=== PATIENT | male | born 1935 | race Caucasian/White ===

== ENCOUNTER → 2017-06-11 | Outpatient (CLI) | payer MEDICARE ==
[~2017-06-11] MED LIST: ALB17R INH; ALLO-2 PO; ALLO100T70 PO; ARMTHY90PT PO; ASPI-1441 PO; ASPI-1471 PO; ATOR40TA69 PO; AZIT-17 PO; BARIUM SULFATE 148 GM POWDER ONE; CEP500 PO; CHOL10005 PO; CLOB50FO2 TP; CLOP75TA PO; CLOP75TA43 PO; DOCU-416 PO; DUTA0.5C14 PO; ECON15CR10 TP; ENA5 PO; ENTA200T3 PO; EZET1TAB63 PO; FLU180SY9 IM; FLU45SYR17 IM; FLU45SYR25 IM ONLY; FLUO15CR TP; FURO-45 PO; FURO20TA19 PO; HYDR10TA3 PO; INDO50CA92 PO; LANI SC; LEVO-85 PO; LEVO25TA57 PO; LEVO75TA73 PO; LOSA100T67 PO; LOSA25TA50 PO; METF-1 PO; METH4TAB66 PO; METO25TA23 PO; NYST15CR32 TP; OMEP1CAP15 PO; OMEP1CAP27 PO; OXYC-373 PO; OXYGENHOME INH; PNEU0.5D3 IM; PRAV40TA78 PO; SPIR25TA78 PO; TAMS0.4C70 PO; TEST200V IM; THYROID PO; TIMO1DRO9 OP; Thyroid PO; [UNRECOGNIZED DRUG - OTHER] PO
--- NOTE | 2017-06-11 17:17 | RADIOLOGY IMAGING REPORT ---
[facility] PATIENT NAME: Dorian Bradshaw : 1935 MR: [id number] V: [id number] EXAM DATE: [id number] ORDERING PHYSICIAN: KARLIE SOLARES TECHNOLOGIST: Location: [facility] Patient: Dorian Bradshaw : 1935 Visit/Account:[id number] Date of Sevice: 06/11/2017 Exam type: ESOPH VIDEO SWALLOWING History: Pharyngoesophageal dysphasia Comparison: None. Findings: The modified barium swallow was performed by the speech pathologist. The patient received various ba rium impregnated liquids and solids and a barium tablet. Please see the speech pathologist report fo r complete details. The fluoroscopy dose area product was 341.14 micro-Oliveros per meter squared IMPRESSION: 1. As above Report Dictated By: Rosie Saldana MD at 06/11/2017 5:12 PM Report E-Signed By: Rosie Saldana MD at 06/11/2017 5:13 PM WSN:[email or web address]
--- NOTE | 2017-06-12 09:29 | SLP MODIFIED BARIUM SWALLOW ---
Speech Language Pathology Modified Barium Swallow Evaluation Report Date of Evaluation: 06-11-17 Patient Name: Dorian Bradshaw Patient : 1935 Physician: Latosha Vargas MD Clinician: Shilpa Spann M.S., [facility] BACKGROUND The patient is an 81 yr old male referred for an MBS to assess swallow structure and function as indicated by s/s of pharyngeal dysphagia including globus sensation. He reports sensation resolves with liquid wash and that taking small bites decreases frequency of symptoms. These symptoms have been present for approximately 2 years. He has a medical history positive for GERD as well as hiatal hernia. 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 Oxygen Supplementation: Y 2L, nasal cannula Level of Consciousness: Non altered Cognitive/Linguistic: intact Orientation: x4 Language: -expressive: nonaphasic -receptive: nonaphasic Speech: -non-apraxic -non-dysarthric Voice -Dysphonia: none -Nasal emission: No -Hypernasality: No -Wet Vocal Quality: No Non-verbal Oral Structure and Function: within functional limits for speech and swallow Pain with Swallow: Denies. Pt. reports feeling intermittent globus sensation inferior to larynx MODIFIED BARIUM SWALLOW In conjunction with radiology, lateral view with trials of the following consistencies: thin barium liquid (noncarbonated), barium marked pureed, mechanical soft, and regular food consistencies, and a 1cm barium pill. ORAL STAGE Thin Liquids: no evidence of dysphagia . WNL Pureed Foods: no evidence of dysphagia . WNL Mechanical Soft Foods: no evidence of dysphagia . WNL Regular Foods: no evidence of dysphagia . WNL. PHARYNGEAL STAGE Thin Liquid: no evidence of dysphagia WNL. Pureed Food: no evidence of dysphagia WNL. Mechanical Soft Foods: no evidence of dysphagia WNL. Regular Food Consistency: no evidence of dysphagia WNL. Penetration/Aspiration Scale*: Thin liquid: Score of 1= Contrast does not enter airway Puree: Score of 1= Contrast does not enter airway Soft and regular solids: Score of 1= Contrast does not enter airway *(Doris et al. 1996) ESOPHAGEAL STAGE Peristaltic movement appears to be WNL Cervical Esophagus: Materials witnessed clearing from cervical esophagus WNL. Thoracic Esophagus: Liquid bolus paused in upper thoracic region of the esophagus. Pt reported a globus sensation with this event. The material was cleared easily with an additional liquid swallow. CARO: Non witnessed Laryngopharyngeal Reflux (LPR) None witnessed BARIUM PILL: 1cm barium pill taken with thin liquids. No oral, pharyngeal, or esophageal dysphagia witnessed. SUMMARY 1. Aspiration Risk: Low. No laryngeal penetration or aspiration witnessed. No oral or pharyngeal stage dysphagia witnessed. Possible mild esophageal stage dysphagia as a liquid bolus paused in upper thoracic region of the esophagus. Pt reported a globus sensation with this event. The material was cleared easily with an additional liquid swallow. Outside of the MBS, the patient reports intermittent globus sensation at the laryngeal level as well as approximately midway between xiphoid process and suprasternal notch. Pt reports success clearing all globus sensation with liquid wash as well as decreasing frequency of the sensation with reduced bolus size. 2.Dysphagia Severity Rating Scale (Gramigna, 2006; Gal et. al., 1990): 1; Minimal dysphagiavideo swallow shows slight deviance from a normal swallow. Patient may report a change in sensation during swallow. No change in diet is required. No modification in consistency of diet is indicated though continuing with small bolus size is recommended. RECOMMENDATIONS 1. Speech Therapy: Not recommended at this time. 2. Diet: No change in diet is recommended at this time. 3. Compensatory Tech: Continue with reduced bolus size and liquid washes. 4. Patient was provided with verbal education regarding swallow anatomy , safe swallow recommendations. Thank you for this referral. Please call [phone] to contact the [facility]. Shilpa Spann M.S., [facility] Physician Signature Date [facility]
== END ==
LOC: RAD 00:37
PROVIDERS: ATTEND Otolaryngology
DX: R13.14 Dysphagia, pharyngoesophageal phase (principal)
CPT/HCPCS: 74230

== ENCOUNTER → 2017-07-10 | Outpatient (CLI) | payer MEDICARE ==
[~2017-07-10] MED LIST changes: -BARIUM SULFATE 148 GM POWDER ONE; +OMEP40CA48 PO
== END ==
LOC: LAB 11:57
PROVIDERS: ATTEND Internal Medicine Cardiovascular Disease
DX: I25.10 Atherosclerotic heart disease of native coronary artery without angina pectoris (principal)
CPT/HCPCS: 36415; 82040; 82247; 82310; 82374; 82435; 82465; 82565; 82947; 83718; 84075; 84132; 84155; 84295; 84450; 84460; 84478; 84520

== ENCOUNTER → 2017-08-15 | Outpatient (CLI) | payer MEDICARE ==
[2017-08-15 13:54] LABS: PLATELET COUNT, AUTOMATED 310 K/uL (150-450)
== END ==
LOC: LAB 13:19
PROVIDERS: ATTEND Internal Medicine
DX: F41.8 Other specified anxiety disorders (principal); N18.9 Chronic kidney disease, unspecified; I25.10 Atherosclerotic heart disease of native coronary artery without angina pectoris; R09.02 Hypoxemia; G47.33 Obstructive sleep apnea (adult) (pediatric); E11.9 Type 2 diabetes mellitus without complications
CPT/HCPCS: 36415; 82040; 82247; 82310; 82374; 82435; 82465; 82565; 82947; 83036; 83718; 84075; 84132; 84155; 84295; 84439; 84443; 84450; 84460; 84478; 84520; 85025

== ENCOUNTER → 2017-09-25 | Outpatient (CLI) | payer MEDICARE | LOC: LAB 16:51 | PROVIDERS: ATTEND Internal Medicine Cardiovascular Disease | DX: I25.10 Atherosclerotic heart disease of native coronary artery without angina pectoris (principal) | CPT/HCPCS: 36415; 82040; 82247; 82310; 82374; 82435; 82465; 82565; 82947; 83718; 83880; 84075; 84132; 84155; 84295; 84450; 84460; 84478; 84520 ==

== ENCOUNTER → 2018-04-27 | Outpatient (CLI) | payer MEDICARE ==
[~2018-04-27] MED LIST changes: +CLIN300C99 PO; +CLOB15CR22 TP; +FLU180SY11 IM; +INDO-23 PO; -INDO50CA92 PO; +LEVO88TA45 PO; -LOSA100T67 PO; +LOSA100T69 PO; -LOSA25TA50 PO; +LOSA25TA52 PO; -SPIR25TA78 PO; +SPIR25TA80 PO
[2018-04-27 13:49] LABS: PLATELET COUNT, AUTOMATED 314 K/uL (150-450)
== END ==
LOC: LAB 12:39
PROVIDERS: ATTEND Internal Medicine
DX: F41.9 Anxiety disorder, unspecified (principal); N18.9 Chronic kidney disease, unspecified; I50.9 Heart failure, unspecified; I25.10 Atherosclerotic heart disease of native coronary artery without angina pectoris; E78.00 Pure hypercholesterolemia, unspecified; G47.33 Obstructive sleep apnea (adult) (pediatric); E11.9 Type 2 diabetes mellitus without complications; Z12.5 Encounter for screening for malignant neoplasm of prostate
CPT/HCPCS: 83036; 84443; 84550; 85025; G0103; 82040; 82247; 82310; 82374; 82435; 82465; 82565; 82947; 83718; 84075; 84132; 84153; 84155; 84295; 84450; 84460; 84478; 84520

== ENCOUNTER → 2018-05-04 | Outpatient (CLI) | payer MEDICARE ==
--- NOTE | 2018-05-04 17:28 | RADIOLOGY IMAGING REPORT ---
FACILITY: [facility] PATIENT NAME: Dorian Bradshaw : 1935 MR: [id number] V: [id number] EXAM DATE: ORDERING PHYSICIAN: BARAK LOAIZA TECHNOLOGIST: Location: [facility] Patient: Dorian Bradshaw : 1935 Visit/Account:[id number] Date of Sevice: 05/04/2018 EXAMINATION: VENOUS DOPP UPPER LEFT EXTREMITY COMPARISON: None. HISTORY: Swelling, bruising, pain L arm. FINDINGS: Standard left upper extremity Doppler ultrasound with color flow and spectral analysis is p erformed. The visualized internal jugular, subclavian, axillary, cephalic, and brachial and basilic veins are w idely patent and compress appropriately. The visualized forearm veins are patent. At the site of bruising along the left upper arm the soft tissue appears mildly heterogeneous but no discrete mass or fluid collection is identified. IMPRESSION: No left upper extremity deep venous thrombosis. Report Dictated By: Ted Wheeler MD at 05/04/2018 5:22 PM Report E-Signed By: Ted Wheeler MD at 05/04/2018 5:24 PM WSN:[id number]
== END ==
LOC: US 15:17
PROVIDERS: ATTEND Nurse Practitioner Primary Care
DX: R60.9 Edema, unspecified (principal)

== ENCOUNTER 2018-06-19 18:59 | Emergency (ER) | payer MEDICARE ==
--- NOTE | 2018-06-19 19:14 | ER Report ---
History and Physical Time Seen By MD: 19:14 HPI/ROS CHIEF COMPLAINT: Shortness of breath HISTORY OF PRESENT ILLNESS: 82-year-old male patient presents to emergency room with complaint shortness of breath. Patient states that he had gone to a movie with his ex-. He states that throughout the movie that he was unable to keep the chart on his portable concentrator. Patient states that towards the end of the movie he was weak and was able to walk up. He helps out the car. At that time he felt he was going to pass out and have them call EMS. When EMS arrived he was in the 60s on room air. Patient states that he is normally on oxygen 24 h ours a day. Patient was unable to recall exactly how much option he supposed to be on. Patient denies having any fevers, chills, nausea, vomiting or diarrhea. Patient states he did have to go to the bathroom. He states that he has not had any coughing. REVIEW OF SYSTEMS: Respiratory: As noted above Cardiovascular: No chest pain, no palpitations. Gastrointestinal: No vomiting, no abdominal pain. Musculoskeletal: No back pain. Allergies: Coded Allergies: Penicillins (Verified Allergy, Mild, HIVES, 05/27/17) gluten (Verified Allergy, Mild, 05/27/17) Home Meds Active Scripts Atorvastatin Calcium (ATORVASTATIN CALCIUM) 40 Mg Tablet, 1 TAB PO QDAY for 90 Days, #90 TAB 4 Refills TAKE ONE TABLET BY MOUTH ONCE A DAY AT BED TIME Prov:ALFRED HYATT MD 06/01/18 Clobetasol Propionate/Emoll (CLOBETASOL EMOLLIENT 0.05% CRM) 15 Gm Cream..g., 0 TP BID, #30 GM 3 Refills Prov:ALFRED HYATT MD 05/26/18 Levothyroxine Sodium (LEVOTHYROXINE SODIUM) 88 Mcg Tablet, 88 MCG PO QDAY, #90 TAB 3 Refills Prov:ALFRED HYATT MD 04/27/18 Omeprazole (OMEPRAZOLE) 40 Mg Capsule.dr, 40 MG PO QDAY for 90 Days, #90 CAP 3 Refills Prov:KARLIE SOLARES JR, MD 02/12/18 Allopurinol (Allopurinol) 300 Mg Tablet, 1 TAB PO DAILY, #90 TAB 3 Refills Prov:ALFRED HYATT MD 10/17/16 Tamsulosin Hcl (TAMSULOSIN HCL) 0.4 Mg Cap.er.24h, 0.4 MG PO QHS, #90 TAB 3 Refills Prov:ALFRED HYATT MD 03/04/16 Metoprolol Succinate (METOPROLOL SUCCINATE) 25 Mg Tab.er.24h, 1 TAB PO QHS, #90 TAB 3 Refills Prov:ALFRED HYATT MD 03/04/16 Furosemide (FUROSEMIDE) 20 Mg Tablet, 1 TAB PO QDAY PRN for to reduce swelling., #90 TAB 1 Refill Prov:ALFRED HYATT MD 03/04/16 Clopidogrel Bisulfate (PLAVIX) 75 Mg Tablet, 1 TAB PO QDAY, #90 TAB 4 Refills TAKE ONE TABLET BY MOUTH EVERY DAY Prov:ALFRED HYATT MD 03/04/16 Timolol Maleate/Pf (TIMOPTIC 0.5% OCUDOSE DROP) 1 Each Droperette, 1 EACH OP BID, #1 BOT 6 Refills Prov:ALFRED HYATT MD 03/04/16 Oxygen (OXYGEN) Inha, 2 L INH QDAY, #2 L Prov:ALFRED HYATT MD 04/04/15 Reported Medications Docusate Sodium (COLACE) 100 Mg Capsule, 100 MG PO BID, #30 CAPSULE 0 Refills 11/14/16 Aspirin (ASPIR 81) 81 Mg Tablet.dr, 81 MG PO QDAY, TAB 05/02/14 Cholecalciferol (Vitamin D3) (VITAMIN D3) 1,000 Unit Tablet, 1000 UNIT PO QDAY 05/02/14 Past Medical/Surgical History Patient has a past medical history of Parkinson's, dementia, [place], angina, oxygen, pneumonia, reflux, kidney disease, BPH, back pain, hypothyroidism, chronic anticoagulation, psoriasis, skin cancer. Patient has a surgical history of coronary stent placement, excisions for skin cancer. Reviewed Nurses Notes: Yes Hx Smoking: Yes (1PPD AGE 8-18) Smoking Status: Former Smoker Hx Substance Use Disorder: No Hx Alcohol Use: No Constitutional Vital Sign - Last 24 Hours 06/19/18 06/19/18 06/19/18 06/19/18 19:16 19:16 19:29 19:30 Temp 98.0 Pulse 80 82 Resp 20 21 B/P (MAP) 132/75 132/75 (94) 99/72 (81) Pulse Ox 76 93 O2 Delivery Nasal Cannula 06/19/18 19:47 O2 Flow Rate 6.0 Physical Exam General Appearance: The patient is alert, has no immediate need for airway protection and no current signs of toxicity. Respiratory: Chest is non tender, lungs are clear to auscultation. Cardiac: regular rate and rhythm Gastrointestinal: Abdomen is soft and non tender, no masses, bowel sounds normal. Musculoskeletal: Neck: Neck is supple and non tender. Extremities have full range of motion and are non tender. Skin: No rashes or lesions. DIFFERENTIAL DIAGNOSIS: After history and physical exam differential diagnosis was considered for hypoxia, pneumonia, [place]. Medical Decision Making Data Points Result Diagram: 06/19/18193206/19/181932 Laboratory Hematology Test 06/19/18 19:33 Red Blood Count 3.58 M/uL (4.00-5.60) Mean Corpuscular Volume 92.0 fL (80.0-96.0) Mean Corpuscular Hemoglobin 30.2 pg (26.0-33.0) Mean Corpuscular Hemoglobin Concent 32.8 g/dL (32.0-36.0) Red Cell Distribution Width 15.6 % (11.5-14.5) Mean Platelet Volume 8.4 fL (7.2-11.1) Neutrophils (%) (Auto) 55.9 % (39.4-72.5) Lymphocytes (%) (Auto) 27.4 % (17.6-49.6) Monocytes (%) (Auto) 6.8 % (4.1-12.4) Eosinophils (%) (Auto) 8.9 % (0.4-6.7) Basophils (%) (Auto) 1.0 % (0.3-1.4) Nucleated RBC Relative Count (auto) 0.0 /100WBC Neutrophils # (Auto) 6.6 K/uL (2.0-7.4) Lymphocytes # (Auto) 3.2 K/uL (1.3-3.6) Monocytes # (Auto) 0.8 K/uL (0.3-1.0) Eosinophils # (Auto) 1.0 K/uL (0.0-0.5) Basophils # (Auto) 0.1 K/uL (0.0-0.1) Nucleated RBC Absolute Count (auto) 0.00 K/uL Sodium Level 139 mmol/L (137-145) Potassium Level 4.2 mmol/L (3.5-5.0) Chloride Level 108 mmol/L (98-107) Carbon Dioxide Level 22 mmol/L (22-30) Blood Urea Nitrogen 26 mg/dl (9-21) Creatinine 1.90 mg/dl (0.66-1.25) Glomerular Filtration Rate Calc 34.2 Random Glucose 97 mg/dl (75-110) Calcium Level 8.7 mg/dl (8.4-10.2) Total Bilirubin 0.2 mg/dl (0.2-1.3) Aspartate Amino Transf (AST/SGOT) 33 U/L (0-35) Alanine Aminotransferase (ALT/SGPT) 35 U/L (0-56) Alkaline Phosphatase 87 U/L (0-126) Troponin I < 0.012 ng/ml Total Protein 6.7 g/dl (6.3-8.2) Albumin 3.7 g/dl (3.5-5.0) Chemistry Test 06/19/18 19:33 White Blood Count 11.7 k/uL (4.5-11.0) Red Blood Count 3.58 M/uL (4.00-5.60) Hemoglobin 10.8 g/dL (14.0-18.0) Hematocrit 33.0 % (42.0-52.0) Mean Corpuscular Volume 92.0 fL (80.0-96.0) Mean Corpuscular Hemoglobin 30.2 pg (26.0-33.0) Mean Corpuscular Hemoglobin Concent 32.8 g/dL (32.0-36.0) Red Cell Distribution Width 15.6 % (11.5-14.5) Platelet Count 304 K/uL (150-450) Mean Platelet Volume 8.4 fL (7.2-11.1) Neutrophils (%) (Auto) 55.9 % (39.4-72.5) Lymphocytes (%) (Auto) 27.4 % (17.6-49.6) Monocytes (%) (Auto) 6.8 % (4.1-12.4) Eosinophils (%) (Auto) 8.9 % (0.4-6.7) Basophils (%) (Auto) 1.0 % (0.3-1.4) Nucleated RBC Relative Count (auto) 0.0 /100WBC Neutrophils # (Auto) 6.6 K/uL (2.0-7.4) Lymphocytes # (Auto) 3.2 K/uL (1.3-3.6) Monocytes # (Auto) 0.8 K/uL (0.3-1.0) Eosinophils # (Auto) 1.0 K/uL (0.0-0.5) Basophils # (Auto) 0.1 K/uL (0.0-0.1) Nucleated RBC Absolute Count (auto) 0.00 K/uL Glomerular Filtration Rate Calc 34.2 Calcium Level 8.7 mg/dl (8.4-10.2) Total Bilirubin 0.2 mg/dl (0.2-1.3) Aspartate Amino Transf (AST/SGOT) 33 U/L (0-35) Alanine Aminotransferase (ALT/SGPT) 35 U/L (0-56) Alkaline Phosphatase 87 U/L (0-126) Troponin I < 0.012 ng/ml Total Protein 6.7 g/dl (6.3-8.2) Albumin 3.7 g/dl (3.5-5.0) EKG/Imaging EKG Interpretation 12 lead EKG: Rhythm: normal sinus rhythm [place]: normal QRS: normal ST segments: normal Unchanged when compared with EKG from 2015 Imaging 2 VIEWS CHEST INDICATION: Respiratory distress. COMPARISON: 05/19/2017. FINDINGS: Cardiomediastinal silhouette and pulmonary vessels within normal limits. Coronary artery calcifications versus stent. There is no focal infiltrate or lobar consolidation. There is no pneumothorax or pleural effusion. No discrete nodule. Chronic interstitial changes. Upper abdomen is unremarkable. No acute bony abnormality. IMPRESSION: 1. No acute cardiopulmonary process. Report Dictated By: Dorian Armenta at 06/19/2018 8:21 PM Report E-Signed By: Dorian Armenta at 06/19/2018 8:23 PM ED Course/Re-evaluation ED Course Patient was admitted to an exam room, history and physical were obtained. Differential diagnoses were considered. On examination lungs are clear, heart is regular, abdomen soft nontender. Patient initially arrived with oxygen saturation of 70%. We will get that back up to 90% and maintain that with his normal oxygen flow. A CBC, CMP, troponin, EKG, chest x-ray were done. Labs were unremarkable, troponin was negative, EKG was unchanged. Chest x-ray showed no acute cardiopulmonary processes. I discussed the findings with the patient we will go ahead and discharge him home at this time. He is to return to emergency room with any concerns. Patient verbalized understanding and agreement with plan. Decision to Disposition Date: Jun 19, 2018 Decision to Disposition Time: 20:35 Depart Departure Latest Vital Signs Vital Signs Date Time Temp Pulse Resp B/P (MAP) Pulse Ox O2 Delivery O2 Flow Rate FiO2 06/19/18 19:47 6.0 06/19/18 19:30 99/72 (81) 06/19/18 19:29 82 21 93 06/19/18 19:16 98.0 Nasal Cannula Impression: Primary Impression: Hypoxia Condition: Improved Disposition: HOME OR SELF-CARE Referrals: ALFRED HYATT MD (PCP) Patient Instructions: Hypoxia (ED) Additional Instructions: Make sure that you have enough oxygen when you go out in public. Follow up with your primary care provider in the next 1-2 weeks. Continue with your normal oxygen. Continue with normal medications. Activity as tolerated. Continue with your normal diet. АЛЕКСАНДР FRASER Jun 19, 2018 19:14
[2018-06-19] MEDS ORDERED: ALBUTEROL/IPRATROPIUM 3 ML NEB NEB ONE (19:20)
[2018-06-19 19:30] VITALS: BP 99/72
[2018-06-19 19:42] LABS: PLATELET COUNT, AUTOMATED 304 K/uL (150-450)
--- NOTE | 2018-06-19 20:28 | RADIOLOGY IMAGING REPORT ---
FACILITY: [facility] [place]IENT NAME: Dorian Bradshaw : 1935 MR: [id number] V: [id number] EXAM DATE: ORDERING PHYSICIAN: АЛЕКСАНДР FRASER TECHNOLOGIST: Location: [facility] Patient: Dorian Bradshaw : 1935 Visit/Account:[id number] Date of Sevice: 06/19/2018 2 VIEWS CHEST INDICATION: Respiratory distress. COMPARISON: 05/19/2017. FINDINGS: Cardiomediastinal silhouette and pulmonary vessels within normal limits. Coronary artery calcificati ons versus stent. There is no focal infiltrate or lobar consolidation. There is no pneumothorax or pleural effusion. No discrete nodule. Chronic interstitial changes. Upper abdomen is unremarkable. No acute bony abnormality. IMPRESSION: 1. No acute cardiopulmonary process. Report Dictated By: Dorian Armenta at 06/19/2018 8:21 PM Report E-Signed By: Dorian Armenta at 06/19/2018 8:23 PM WSN:[id number]
--- NOTE | 2018-06-19 20:38 | EKG ---
FACILITY: [facility] PATIENT NAME: LAURA ZAMORA : [id number] MR: [id number] V: [id number] EXAM DATE: ORDERING PHYSICIAN: АЛЕКСАНДР FRASER TECHNOLOGIST: DAVID Test Reason : Blood Pressure : / mmHG Vent. 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
== END 2018-06-19 21:50 | disposition home or self-care (01) ==
LOC: ER 19:38
DX: R09.02 Hypoxemia (principal)
CPT/HCPCS: 36415; 71046; 84484; 85025; 87040; 93005; 99284; J7620; 82040; 82247; 82310; 82374; 82435; 82565; 82947; 84075; 84132; 84155; 84295; 84450; 84460; 84520

== ENCOUNTER → 2018-06-19 | Outpatient (CLI) | payer MEDICARE ==
[~2018-06-19] MED LIST changes: -LOSA100T69 PO; +LOSA100T75 PO; -LOSA25TA52 PO; +LOSA25TA57 PO
== END ==
LOC: AMB 18:45
PROVIDERS: ATTEND Nurse Practitioner
DX: R09.02 Hypoxemia (principal); R42 Dizziness and giddiness
CPT/HCPCS: A0425; A0429

== ENCOUNTER → 2018-07-13 | Outpatient (CLI) | payer MEDICARE ==
[2018-07-13 13:01] LABS: PLATELET COUNT, AUTOMATED 341 K/uL (150-450)
== END ==
LOC: LAB 12:29
PROVIDERS: ATTEND Internal Medicine Nephrology
DX: I12.9 Hypertensive chronic kidney disease with stage 1 through stage 4 chronic kidney disease, or unspecified chronic kidney disease (principal); I25.10 Atherosclerotic heart disease of native coronary artery without angina pectoris; M10.9 Gout, unspecified; E11.9 Type 2 diabetes mellitus without complications; N18.3 Chronic kidney disease, stage 3 (moderate)
CPT/HCPCS: 36415; 82040; 82306; 82310; 82374; 82435; 82565; 82570; 82947; 83970; 84100; 84132; 84156; 84295; 84520; 84550; 85025

== ENCOUNTER → 2018-10-27 | Outpatient (CLI) | payer MEDICARE | LOC: LAB 12:38 | PROVIDERS: ATTEND Internal Medicine Cardiovascular Disease | DX: I25.110 Atherosclerotic heart disease of native coronary artery with unstable angina pectoris (principal); I10 Essential (primary) hypertension; E78.00 Pure hypercholesterolemia, unspecified | CPT/HCPCS: 36415; 82040; 82247; 82310; 82374; 82435; 82565; 82947; 84075; 84132; 84155; 84295; 84450; 84460; 84520 ==

== ENCOUNTER 2018-10-30 13:14 | Emergency (ER) | payer MEDICARE ==
--- NOTE | 2018-10-30 13:18 | ER Report ---
History and Physical Time Seen By MD: 13:18 (SAM WILLIS MD) HPI/ROS CHIEF COMPLAINT: Dizziness and shortness of breath. HISTORY OF PRESENT ILLNESS: Patient is a 82-year-old male who resides by himself is on chronic oxygen at what is thought to be 3 L. He was referred to the emergency department after a cardiology visit today with Dr. Benitez. Patient has a history of multiple stents in the past related to his doctor that he's been feeling short of breath and dizzy so he was referred to the emergency department for evaluation. He's also been complaining of severe headache and is concerned about the possibility of stroke despite no specific motor or sensory weakness. Patient states that he feels his oxygen concentrator is not quite effective enough to keep up with his oxygen needs. He denies any fevers or chills. He does report cough that is nonproductive. He denies any actual chest pain or chest pressure. He denies nausea vomiting or abdominal pain. 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 REVIEW OF SYSTEMS: Constitutional: No fever, no chills. Eyes: No discharge. ENT: No sore throat. Cardiovascular: No chest pain, no palpitations. Respiratory: Report of cough and shortness of breath Gastrointestinal: No abdominal pain, no vomiting. Genitourinary: No hematuria. Musculoskeletal: No back pain. Skin: No rashes. Neurological: Headache, dizziness (SAM WILLIS MD) Allergies: Coded Allergies: Penicillins (Verified Allergy, Mild, HIVES, 10/30/18) gluten (Verified Allergy, Mild, 10/30/18) Home Meds Active Scripts Atorvastatin Calcium (ATORVASTATIN CALCIUM) 40 Mg Tablet, 1 TAB PO QDAY for 90 Days, #90 TAB 4 Refills TAKE ONE TABLET BY MOUTH ONCE A DAY AT BED TIME Prov:ALFRED HYATT MD 06/01/18 Clobetasol Propionate/Emoll (CLOBETASOL EMOLLIENT 0.05% CRM) 15 Gm Cream..g., 0 TP BID, #30 GM 3 Refills Prov:ALFRED HYATT MD 05/26/18 Levothyroxine Sodium (LEVOTHYROXINE SODIUM) 88 Mcg Tablet, 88 MCG PO QDAY, #90 TAB 3 Refills Prov:ALFRED HYATT MD 04/27/18 Omeprazole (OMEPRAZOLE) 40 Mg Capsule., 40 MG PO QDAY for 90 Days, #90 CAP 3 Refills Prov:KARLIE SOLARES JR, MD 02/12/18 Allopurinol (Allopurinol) 300 Mg Tablet, 1 TAB PO DAILY, #90 TAB 3 Refills Prov:ALFRED HYATT MD 10/17/16 Tamsulosin Hcl (TAMSULOSIN HCL) 0.4 Mg Cap.er.24h, 0.4 MG PO QHS, #90 TAB 3 Refills Prov:ALFRED HYATT MD 03/04/16 Metoprolol Succinate (METOPROLOL SUCCINATE) 25 Mg Tab.er.24h, 1 TAB PO QHS, #90 TAB 3 Refills Prov:ALFRED HYATT MD 03/04/16 Furosemide (FUROSEMIDE) 20 Mg Tablet, 1 TAB PO QDAY PRN for to reduce swelling., #90 TAB 1 Refill Prov:ALFRED HYATT MD 03/04/16 Clopidogrel Bisulfate (PLAVIX) 75 Mg Tablet, 1 TAB PO QDAY, #90 TAB 4 Refills TAKE ONE TABLET BY MOUTH EVERY DAY Prov:ALFRED HYATT MD 03/04/16 Timolol Maleate/Pf (TIMOPTIC 0.5% OCUDOSE DROP) 1 Each Droperette, 1 EACH OP BID, #1 BOT 6 Refills Prov:ALFRED HYATT MD 03/04/16 Oxygen (OXYGEN) Inha, 2 L INH QDAY, #2 L Prov:ALFRED HYATT MD 04/04/15 Reported Medications Docusate Sodium (COLACE) 100 Mg Capsule, 100 MG PO BID, #30 CAPSULE 0 Refills 11/14/16 Aspirin (ASPIR 81) 81 Mg Tablet., 81 MG PO QDAY, TAB 05/02/14 Cholecalciferol (Vitamin D3) (VITAMIN D3) 1,000 Unit Tablet, 1000 UNIT PO QDAY 05/02/14 Past Medical/Surgical History Past medical history for Parkinson's disease, stroke, glaucoma, history of coronary artery disease status post stenting, history of hypertension, history of sleep apnea, pneumonia history of gastroesophageal reflux disease, history of chronic renal failure with baseline creatinine between 1.6-2. History of gout, history of elevated body mass index, history of skin cancer. (SAM WILLIS MD) Hx Smoking: Yes (1PPD AGE 8-18) Smoking Status: Former Smoker Hx Substance Use Disorder: No Hx Alcohol Use: No (SAM WILLIS MD) Constitutional Vital Sign - Last 24 Hours 10/30/18 10/30/18 10/30/18 10/30/18 13:17 13:23 13:24 13:29 Temp 97.5 Pulse 78 Resp 24 B/P (MAP) 124/69 124/69 (87) Pulse Ox 89 89 99 O2 Delivery Nasal Cannula 10/30/18 10/30/18 10/30/18 10/30/18 13:30 13:34 13:44 13:49 Pulse 78 78 74 B/P (MAP) 124/119 (121) Pulse Ox 95 95 93 10/30/18 10/30/18 10/30/18 10/30/18 13:54 13:59 14:00 14:19 Pulse 78 73 75 B/P (MAP) 96/57 (70) Pulse Ox 92 91 91 10/30/18 10/30/18 10/30/18 10/30/18 14:24 14:29 14:30 14:34 Pulse 72 70 75 B/P (MAP) 116/60 (78) Pulse Ox 94 93 92 10/30/18 10/30/18 10/30/18 10/30/18 14:39 14:44 14:49 14:54 Pulse 69 66 70 73 Pulse Ox 90 86 93 91 10/30/18 10/30/18 10/30/18 10/30/18 14:59 15:00 15:04 15:09 Pulse 69 70 66 B/P (MAP) 128/66 (86) Pulse Ox 96 97 95 (LAURORA,RAHEL V DO) Physical Exam General/Constitutional: Patient is awake, alert, nontoxic and in no acute respiratory distress. Satting 98% on 5 L nasal cannula. Head: Normocephalic and atraumatic. Eyes: Conjunctival clear, Pupils are equal and reactive to light. Extraocular muscles are intact and symmetrical. Sclera are clear and anicteric. Ears:External canals are clear. Tympanic membranes are clear with normal landmarks and light reflex. Nares: No rhinorrhea or bleeding. Turbinates are pink and moist. Oropharyngeal: Mucous membranes are moist. There is no pharyngeal erythema or exudate. There are no palatal petechiae. Uvula is midline and symmetrical. Neck: Supple, no adenopathy. Cardiovascular: Heart is regular rate and rhythm without audible murmurs, rubs or gallops. Pulmonary: Lungs are clear to auscultation bilaterally. There are no wheezes, rales, or rhonchi. Chest rise is symmetrical Abdomen: Soft, nontender, no guarding or peritoneal signs. Extremities: No gross deformities, No peripheral cyanosis. Able to move all 4 extremities. Gross strength 5 out of 5 bilaterally and symmetrical Neuro: Alert and oriented X3, Skin: No rashes, skin is warm dry and well perfused. (SAM WILLIS MD) Medical Decision Making Data Points Result Diagram: 10/30/18 1343 10/30/18 1343 Laboratory Hematology Test 10/30/18 13:43 10/30/18 16:17 Red Blood Count 3.77 M/uL (4.00-5.60) Mean Corpuscular Volume 90.7 fL (80.0-96.0) Mean Corpuscular Hemoglobin 29.4 pg (26.0-33.0) Mean Corpuscular Hemoglobin Concent 32.5 g/dL (32.0-36.0) Red Cell Distribution Width 16.0 % (11.5-14.5) Mean Platelet Volume 8.0 fL (7.2-11.1) Neutrophils (%) (Auto) 51.8 % (39.4-72.5) Lymphocytes (%) (Auto) 31.3 % (17.6-49.6) Monocytes (%) (Auto) 5.8 % (4.1-12.4) Eosinophils (%) (Auto) 9.9 % (0.4-6.7) Basophils (%) (Auto) 1.2 % (0.3-1.4) Nucleated RBC Relative Count (auto) 0.0 /100WBC Neutrophils # (Auto) 4.9 K/uL (2.0-7.4) Lymphocytes # (Auto) 3.0 K/uL (1.3-3.6) Monocytes # (Auto) 0.6 K/uL (0.3-1.0) Eosinophils # (Auto) 0.9 K/uL (0.0-0.5) Basophils # (Auto) 0.1 K/uL (0.0-0.1) Nucleated RBC Absolute Count (auto) 0.00 K/uL Prothrombin Time 13.5 seconds (12.0-14.4) Prothromb Time International Ratio 1.03 Activated Partial Thromboplast Time 36 seconds (23-35) Sodium Level 140 mmol/L (137-145) Potassium Level 4.8 mmol/L (3.5-5.0) Chloride Level 108 mmol/L (98-107) Carbon Dioxide Level 26 mmol/L (22-30) Blood Urea Nitrogen 19 mg/dl (9-21) Creatinine 1.70 mg/dl (0.66-1.25) Glomerular Filtration Rate Calc 38.9 Random Glucose 102 mg/dl (75-110) Calcium Level 8.8 mg/dl (8.4-10.2) Total Bilirubin 0.4 mg/dl (0.2-1.3) Aspartate Amino Transf (AST/SGOT) 29 U/L (0-35) Alanine Aminotransferase (ALT/SGPT) 14 U/L (0-56) Alkaline Phosphatase 79 U/L (0-126) B-Type Natriuretic Peptide 329 pg/ml (0-100) Total Protein 7.1 g/dl (6.3-8.2) Albumin 3.7 g/dl (3.5-5.0) Troponin I < 0.012 ng/ml Chemistry Test 10/30/18 13:43 10/30/18 16:17 White Blood Count 9.5 k/uL (4.5-11.0) Red Blood Count 3.77 M/uL (4.00-5.60) Hemoglobin 11.1 g/dL (14.0-18.0) Hematocrit 34.2 % (42.0-52.0) Mean Corpuscular Volume 90.7 fL (80.0-96.0) Mean Corpuscular Hemoglobin 29.4 pg (26.0-33.0) Mean Corpuscular Hemoglobin Concent 32.5 g/dL (32.0-36.0) Red Cell Distribution Width 16.0 % (11.5-14.5) Platelet Count 329 K/uL (150-450) Mean Platelet Volume 8.0 fL (7.2-11.1) Neutrophils (%) (Auto) 51.8 % (39.4-72.5) Lymphocytes (%) (Auto) 31.3 % (17.6-49.6) Monocytes (%) (Auto) 5.8 % (4.1-12.4) Eosinophils (%) (Auto) 9.9 % (0.4-6.7) Basophils (%) (Auto) 1.2 % (0.3-1.4) Nucleated RBC Relative Count (auto) 0.0 /100WBC Neutrophils # (Auto) 4.9 K/uL (2.0-7.4) Lymphocytes # (Auto) 3.0 K/uL (1.3-3.6) Monocytes # (Auto) 0.6 K/uL (0.3-1.0) Eosinophils # (Auto) 0.9 K/uL (0.0-0.5) Basophils # (Auto) 0.1 K/uL (0.0-0.1) Nucleated RBC Absolute Count (auto) 0.00 K/uL Prothrombin Time 13.5 seconds (12.0-14.4) Prothromb Time International Ratio 1.03 Activated Partial Thromboplast Time 36 seconds (23-35) Glomerular Filtration Rate Calc 38.9 Calcium Level 8.8 mg/dl (8.4-10.2) Total Bilirubin 0.4 mg/dl (0.2-1.3) Aspartate Amino Transf (AST/SGOT) 29 U/L (0-35) Alanine Aminotransferase (ALT/SGPT) 14 U/L (0-56) Alkaline Phosphatase 79 U/L (0-126) B-Type Natriuretic Peptide 329 pg/ml (0-100) Total Protein 7.1 g/dl (6.3-8.2) Albumin 3.7 g/dl (3.5-5.0) Troponin I < 0.012 ng/ml Coagulation Test 10/30/18 13:43 Prothrombin Time 13.5 seconds Prothromb Time International Ratio 1.03 Activated Partial Thromboplast Time 36 seconds (RAHEL CROCKETT DO) EKG/Imaging EKG Interpretation EKG shows normal sinus rhythm with sinus arrhythmia ventricular rate of 72 bpm. This is essentially an change from EKG from June 2018. Monitor Interpretation: Normal Sinus Rhythm Imaging FACILITY: [facility] PATIENT NAME: Dorian Bradshaw : 1935 MR: [id number] V: [id number] EXAM DATE: [id number] ORDERING PHYSICIAN: SAM WILLIS TECHNOLOGIST: Location: [facility] Patient: Dorian Bradshaw : 1935 Visit/Account:[id number] Date of Sevice: 10/30/[address] scan without contrast COMPARISONS: None ADDITIONAL PERTINENT HISTORY: Headaches for one week with dull pain TECHNIQUE: Multiple axial images were obtained from the skull base to the vertex without IV contrast. One of the following dose optimization techniques was utilized in the performance of this exam: Automated exposure control; adjustment of the mA and/or kV according to the patient's size; or use of an iterative reconstruction technique. Specific details can be referenced in the facility's radiology CT exam operational policy. FINDINGS: Midline shift: Negative Ventricles: Moderate enlargement of the lateral and third ventricles. Otherwise negative Brain parenchyma: Extensive regions of low attenuation involving the perivent ricular and subcortical white matter, nonspecific but likely representing small vessel ischemic change on a chronic basis. No intraparenchymal hemorrhage or mass effect. Extra-axial spaces: Moderate cerebral atrophy. Intracranial vasculature: Cavernous internal carotid artery calcifications. O therwise negative Osseous structures: Negative Paranasal sinuses and mastoid air cells: Mild mucosal thickening involving both maxillary sinuses. Mild mucosal thickening involving the frontal sinuses. Surrounding soft tissues and orbits: Negative IMPRESSION: 1. Age related changes as described above. 2. No evidence of acute intracranial pathology. Report Dictated By: Titus Lowry MD at 10/30/2018 2:48 PM Report E-Signed By: Titus Lowry MD at 10/30/2018 2:52 PM WSN:[id number] (SAM WILLIS MD) ED Course/Re-evaluation ED Course 10/30/2018 1:53:44 pm plan at this time will be cardiac workup and CT of the head. Patient responded well to increased O2 and is satting at 98% on 5 L. plan at this time will be to repeat a troponin at 4 PM to trend since patient's symptoms have been fairly chronic. Awaiting chest x-ray results at this time. Decision to Disposition Date: October 30, 2018 Decision to Disposition Time: 18:00 (SAM WILLIS MD) Clinical Indication for ER IV: IV Access ED Course 10/30/2018 3:45:59 pm Signed out pending second troponin. Pt initial blood work is at baseline. Pt imaging is stable. Pt is still concerned about his intermittent dizziness and headaches. PT currently not having either symptoms. Discussed other options with patient. Pt is agreeable to MRI. Will order. 10/30/2018 5:49:50 pm Pts second trop was stable. Pts MRI did not show anything acute accept for some inflammation of the sinuses. Pt feels it is most likely related to allergies and declined abx for possible early sinusitis. Pt asked for a copy of his blood work which was supplied. PT feels he can go home "my car is just outside". will d/c to follow up the [facility] pcp. Decision to Disposition Date: October 30, 2018 Decision to Disposition Time: 17:51 (RAHEL CROCKETT DO) Depart Departure Latest Vital Signs Vital Signs Date Time Temp Pulse Resp B/P (MAP) Pulse Ox O2 Delivery O2 Flow Rate FiO2 10/30/18 15:09 66 95 10/30/18 15:00 128/66 (86) 10/30/18 13:17 97.5 24 Nasal Cannula (RAHEL CROCKETT DO) Impression: Primary Impression: Shortness of breath Additional Impression: Dizziness Condition: Condition Unchanged Disposition: HOME OR SELF-CARE Referrals: ALFRED HYATT MD (PCP) 5 Days Patient Instructions: GENERAL ER DISCHARGE INSTRUCTIONS Additional Instructions: Your blood work today did not show an acute heart attack. Your xray did not show pneumonia. Your cat scan of your head and your MRI did not show an acute stroke. You do have some inflammation of your sinuses which could be allergies or a very early sinusitis. Follow up with your doctor next week. If symptoms worsen prior to following up with your family doctor then please return to the emergency. Problem Qualifiers SAM WILLIS MD October 30, 2018 13:18 RAHEL CROCKETT DO October 30, 2018 15:48
[2018-10-30 13:51] LABS: PLATELET COUNT, AUTOMATED 329 K/uL (150-450)
[2018-10-30 14:01] LABS: INR 1.03
--- NOTE | 2018-10-30 14:06 | EKG ---
FACILITY: [facility] PATIENT NAME: LAURA ZAMORA : [id number] MR: [id number] V: [id number] EXAM DATE: ORDERING PHYSICIAN: SAM WILLIS TECHNOLOGIST: Test Reason : Blood Pressure : / mmHG Vent. Rate : 072 BPM Atrial Rate : 072 BPM P-R Int : 170 ms QRS Dur : 082 ms QT Int : 388 ms P-R-T Axes : 017 -22 -08 degrees QTc Int : 424 ms Normal sinus rhythm with sinus arrhythmia Inferior infarct , age undetermined T inversion consistent with inferior ischemia vs normal variant Relatively unchanged from previous Confirmed by CARRIE MARQUES ([id number]) on 10/30/2018 2:25:50 PM Referred By: Confirmed By:CARRIE MARQUES
--- NOTE | 2018-10-30 14:57 | RADIOLOGY IMAGING REPORT ---
FACILITY: [facility] PATIENT NAME: Dorian Bradshaw : 1935 MR: [id number] V: [id number] EXAM DATE: ORDERING PHYSICIAN: SAM WILLIS TECHNOLOGIST: Location: [facility] [place] Patient: Dorian Bradshaw : 1935 Visit/Account:[id number] Date of Sevice: 10/30/[address] scan without contrast COMPARISONS: None ADDITIONAL PERTINENT HISTORY: Headaches for one week with dull pain TECHNIQUE: Multiple axial images were obtained from the skull base to the vertex without IV contrast . One of the following dose optimization techniques was utilized in the performance of this exam: Aut omated exposure control; adjustment of the mA and/or kV according to the patient's size; or use of an iterative reconstruction technique. Specific details can be referenced in the facility's radiology CT exam operational policy. FINDINGS: Midline shift: Negative Ventricles: Moderate enlargement of the lateral and third ventricles. Otherwise negative Brain parenchyma: Extensive regions of low attenuation involving the periventricular and subcortical white matter, nonspecific but likely representing small vessel ischemic change on a chronic basis. N o intraparenchymal hemorrhage or mass effect. Extra-axial spaces: Moderate cerebral atrophy. Intracranial vasculature: Cavernous internal carotid artery calcifications. Otherwise negative Osseous structures: Negative Paranasal sinuses and mastoid air cells: Mild mucosal thickening involving both maxillary sinuses. M ild mucosal thickening involving the frontal sinuses. Surrounding soft tissues and orbits: Negative IMPRESSION: 1. Age related changes as described above. 2. No evidence of acute intracranial pathology. Report Dictated By: Titus Lowry MD at 10/30/2018 2:48 PM Report E-Signed By: Titus Lowry MD at 10/30/2018 2:52 PM WSN:[id number]
[2018-10-30 15:00] VITALS: BP 128/66
--- NOTE | 2018-10-30 15:16 | RADIOLOGY IMAGING REPORT ---
FACILITY: [facility] [place] [place] PATIENT NAME: Dorian Bradshaw : 1935 MR: [id number] V: [id number] EXAM DATE: [id number] ORDERING PHYSICIAN: SAM WILLIS TECHNOLOGIST: Location: [facility] Patient: Dorian Bradshaw : 1935 Visit/Account:[id number] Date of Sevice: 10/30/2018 Exam type: CHEST PA LAT History: Shortness of breath Comparison: June 19, 2018. Findings: Chronic interstitial changes are again present throughout the lungs. No new areas of pulmonary conso lidation are seen. The cardiac silhouette remains normal in size. There is no evidence of pleural e ffusions or overt pulmonary edema. There are moderate spondylotic changes of the thoracic spine IMPRESSION: 1. Chronic initial changes again seen throughout the lungs with no evidence of acute appearing infil trates Report Dictated By: Rosie Saldana MD at 10/30/2018 3:10 PM Report E-Signed By: Rosie Saldana MD at 10/30/2018 3:12 PM WSN:[email or web address]
--- NOTE | 2018-10-30 17:37 | RADIOLOGY IMAGING REPORT ---
FACILITY: [facility] PATIENT NAME: Dorian Bradshaw : 1935 MR: [id number] V: [id number] EXAM DATE: [id number] ORDERING PHYSICIAN: RAHEL CROCKETT TECHNOLOGIST: Location: [facility] Patient: Dorian Bradshaw : 1935 Visit/Account:[id number] Date of Sevice: 10/30/2018 EXAMINATION: MRI Brain without intravenous contrast HISTORY: Headache. Dizziness. COMPARISON: Noncontrast head CT dated 10/30/2018. TECHNIQUE: Multi-planar, multi-sequence brain MRI was performed without IV contrast administration. FINDINGS: Brain volume: Moderate generalized volume loss. Sagittal midline structures: Negative. Ventricles: Negative. Acute ischemic changes: None. Hemorrhage: None. Masses / edema: None. Oliveros-white: Negative. White matter: Patchy and confluent T2/FLAIR hyperintensities in the deep white matter bilaterally. Vessels: Negative. Extra-axial: Negative. Calvarium / scalp: Negative. Skull base: Negative. Visualized sinuses / orbits: Mild mucosal thickening in the left maxillary sinus. Visualized upper neck: Negative. IMPRESSION: 1. No acute intracranial abnormality or mass. 2. Moderate generalized brain parenchymal volume loss. 3. Moderate to severe chronic white matter disease, nonspecific but most likely representing chronic microvascular ischemia. 4. Mild mucosal thickening in the left maxillary sinus. Report Dictated By: Elijah Bolden MD at 10/30/2018 5:29 PM Report E-Signed By: Elijah Bolden MD at 10/30/2018 5:34 PM WSN:[id number]
== END 2018-10-30 18:09 | disposition home or self-care (01) ==
LOC: ER 13:34
DX: R06.02 Shortness of breath (principal); R42 Dizziness and giddiness
CPT/HCPCS: 70450; 70551; 71046; 82040; 82247; 82310; 82374; 82435; 82565; 82947; 83880; 84075; 84132; 84155; 84295; 84450; 84460; 84484; 84520; 85025; 85610; 85730; 93005; 99284